=== PATIENT | female | born 1985 | race Caucasian/White ===

== ENCOUNTER 2017-06-10 20:09 | Emergency (ER) | payer SELFPAY ==
[~2017-06-10] VITALS: Ht 154.9 cm; Wt 65.8 kg
[2017-06-10 20:14] VITALS: BP 137/86
--- NOTE | 2017-06-10 20:36 | NUR ---
PT TAKEN TO BED 12
--- NOTE | 2017-06-10 20:46 | NUR ---
31/F CAME IN WITH C/O LAC TO RT 4TH FINGER S/P CUTTING THROUGH GLASS X 30 MINS AGO. PT DENIES ANY FOREIGN OBJECT ON FINGER, BLEEDING CONTROLLED AT THIS TIME. +PMSC TO RT HAND, FULL ROM, DENIES NUMBNESS/TINGLING AND WEAKNESS. DENIES PMH/RX/OTC
[2017-06-10] MEDS ORDERED: HYDROcodone/APAP 5/325 MG 1 TAB TAB PO ONE (21:15)
[2017-06-10] MEDS ORDERED: LIDOCAINE 1% ***ER ONLY *** 10 MG/ML VIAL INJ ONE (21:45)
--- NOTE | 2017-06-10 22:25 | NUR ---
Dr. Ospina evaluating patient at bedside.
[2017-06-10] MEDS ORDERED: NEOMYCIN/POLYMYXIN/BACITRACIN 0.9 GM/1 PKT TP ONE (22:41)
--- NOTE | 2017-06-10 22:54 | NUR ---
Patient discharged with v/s stable. Written and verbal after care instructions given and explained. Patient verbalized understanding. Ambulatory with steady gait. All questions addressed prior to discharge. Advised to follow up with PMD.
[2017-06-10 23:46] VITALS: BP 128/72
== END 2017-06-10 22:54 | disposition home or self-care (01) ==
LOC: MED 20:09
DX: S61.214A Laceration without foreign body of right ring finger without damage to nail, initial encounter (principal); R03.0 Elevated blood-pressure reading, without diagnosis of hypertension; W25.XXXA Contact with sharp glass, initial encounter; Y93.89 Activity, other specified; Y92.89 Other specified places as the place of occurrence of the external cause; Y99.8 Other external cause status
CPT/HCPCS: 12001; 73130; 99284; J2001; Q0092